=== PATIENT | male | born 1945 | race Caucasian/White ===

== ENCOUNTER 2018-08-09 10:20 | Outpatient (CLI) | payer MEDICARE, OTHER, SELFPAY ==
[2018-08-09 12:12] LABS: Glucose 106 mg/dL (70-100); TSH (W/Ref FT4) 4.83 uIU/mL (0.358-3.74)
[2018-08-09 12:28] LABS: FREE T4 0.84 ng/dL (0.76-1.46)
[2018-08-10 10:07] LABS: PSA, Screening 7.2 ng/ml (0-6.5)
== END 2018-08-09 10:40 ==
PROVIDERS: PCP General Practice; Visit Provider General Practice
DX: R00.2 Palpitations (principal); E03.9 Hypothyroidism, unspecified; R73.09 Other abnormal glucose; Z12.5 Encounter for screening for malignant neoplasm of prostate; M54.41 Lumbago with sciatica, right side
CPT/HCPCS: 36415; 82947; 84153; 99211; 99213; 73502; 84439; 84443

== ENCOUNTER 2018-08-09 11:52 | Outpatient (CLI) | payer MEDICARE, OTHER, SELFPAY ==
--- NOTE | 2018-08-09 11:49 | DI.RAD_ITS ---
SYMPTOMS/DIAGNOSIS: HIP PAIN RIGHT HIP AND PELVIS: Two views. Comparison CT scan is 03/02/13. In the right hip there is minimal spurring of the acetabulum. The right hip joint is otherwise well maintained. There are dystrophic calcifications again seen about the left hip. These appear stable compared to the CT scan from 03/02/13. No acute fracture or dislocation, lytic or sclerotic lesion is seen. The soft tissues are otherwise unremarkable. 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
== END 2018-08-09 12:12 ==
PROVIDERS: PCP General Practice; Visit Provider Physician Assistant Surgical
DX: M25.551 Pain in right hip (principal); M16.11 Unilateral primary osteoarthritis, right hip
CPT/HCPCS: 73502

== ENCOUNTER 2018-09-28 13:08 | Outpatient (CLI) | payer MEDICARE, OTHER, SELFPAY ==
[2018-09-28 14:26] LABS: TSH 1.71 uIU/mL (0.358-3.74)
== END 2018-09-28 13:28 ==
PROVIDERS: PCP General Practice; Visit Provider General Practice
DX: E03.9 Hypothyroidism, unspecified (principal)
CPT/HCPCS: 84443

== ENCOUNTER → 2018-10-19 11:02 | Outpatient (BNVA) | payer MEDICARE, OTHER, SELFPAY | PROVIDERS: PCP General Practice; Referring Provider General Practice; Visit Provider Nurse Practitioner Gerontology | DX: N48.6 Induration penis plastica (principal) | CPT/HCPCS: 99204; 99215 ==

== ENCOUNTER → 2020-09-19 10:45 | Outpatient (BNVA) | payer MEDICARE, OTHER, SELFPAY | PROVIDERS: PCP General Practice; Referring Provider General Practice; Visit Provider Student in an Organized Health Care Education/Training Program | DX: S46.212A Strain of muscle, fascia and tendon of other parts of biceps, left arm, initial encounter (principal); X58.XXXA Exposure to other specified factors, initial encounter | CPT/HCPCS: 99213 ==